=== PATIENT | female | born 1970 | race Caucasian/White ===

== ENCOUNTER 2016-12-20 08:00 | Outpatient (CLI) | payer MEDICARE, MEDICAID | END 2016-12-20 23:59 | DX: N30.01 Acute cystitis with hematuria (principal) ==

== ENCOUNTER 2018-05-15 09:12 | Outpatient (CLI) | payer MEDICARE, MEDICAID ==
[2018-05-15 09:47] LABS: BASOPHILS % (AUTO) 0.3 %; EOSINOPHILS % (AUTO) 0.1 %; HGB - HEMOGLOBIN 14.1 g/dL (12.0-16.0); LYMPHOCYTES # (AUTO) 1.7 10^3/uL (1.5-3.5); LYMPHOCYTES % (AUTO) 34.7 %; MEAN CORPUSCULAR HEMOGLOBIN 31.7 pg (27.0-31.0); MEAN CORPUSCULAR HGB CONC 33.1 g/dL (32.0-36.0); MEAN CORPUSCULAR VOLUME 95.5 fL (81.0-99.0); MEAN PLATELET VOLUME 8.5 fL (7.9-10.8); MONOCYTES # (AUTO) 0.3 10^3/uL (0.0-1.0); MONOCYTES % (AUTO) 5.5 %; NEUTROPHILS % (AUTO) 59.4 %; PLT - PLATELET COUNT 212 10^3/uL (130-450); RED BLOOD COUNT 4.46 10^6/uL (4.20-5.40); RED CELL DISTRIBUTION WIDTH 13.5 % (12.0-15.0)
[2018-05-15 10:04] LABS: ALBUMIN/GLOBULIN RATIO 1.3 (1.0-2.2); ALKALINE PHOSPHATASE 57 IU/L (42-121); ALT ALANINE AMINOTRANSFERASE 24 IU/L (10-60); AST ASPARTATE AMINOTRANSFERASE 23 IU/L (10-42); BILIRUBIN,TOTAL 0.6 mg/dL (0.2-1.0); BUN - BLOOD UREA NITROGEN 12 mg/dL (6-20); CALCIUM 9.2 mg/dL (8.5-10.3); CARBON DIOXIDE - CO2 22 mmol/L (21-32); CHLORIDE 105 mmol/L (101-111); CHOLESTEROL 214 mg/dL; CREATININE 0.9 mg/dL (0.4-1.0); GFR - MDRD 67 (>89); GLUCOSE 90 mg/dL (70-100); HDL CHOLESTEROL 53 mg/dL; LDL CHOLESTEROL,CALCULATED 134 mg/dL; LDL/HDL RATIO 2.5 (<4.4); SODIUM 139 mmol/L (135-145); TOTAL PROTEIN 7.1 g/dL (6.7-8.2); VLDL CHOLESTEROL 27 mg/dL
[2018-05-15 10:05] LABS: HB2 TOTAL 15.6 g/dL; HEMOGLOBIN A1C 0.48 g/dL
[2018-05-15 10:30] LABS: THYROID STIMULATING HORMONE 3.38 uIU/mL (0.34-5.60)
[2018-05-15 10:32] LABS: FREE T4 (FREE THYROXINE) 0.67 ng/dL (0.58-1.64)
== END 2018-05-15 09:13 | disposition home or self-care (01) ==
LOC: LAB 09:12
PROVIDERS: ATTEND Internal Medicine
DX: Z00.00 Encounter for general adult medical examination without abnormal findings (principal); E78.5 Hyperlipidemia, unspecified; L40.9 Psoriasis, unspecified; R73.01 Impaired fasting glucose; Z79.899 Other long term (current) drug therapy; Z13.6 Encounter for screening for cardiovascular disorders; Z87.820 Personal history of traumatic brain injury
CPT/HCPCS: 36415; 80053; 80061; 83036; 83721; 84439; 84443; 85025

== ENCOUNTER 2018-07-10 13:12 | Outpatient (CLI) | payer MEDICARE, MEDICAID ==
[2018-07-10 13:53] LABS: VALPROIC ACID (DEPAKOTE) 41.3 ug/mL
== END 2018-07-10 13:13 | disposition home or self-care (01) ==
LOC: LAB 13:12
PROVIDERS: ATTEND Nurse Practitioner Psychiatric/Mental Health
DX: F31.9 Bipolar disorder, unspecified (principal)
CPT/HCPCS: 36415; 80164

== ENCOUNTER 2018-09-13 10:03 | Outpatient (CLI) | payer MEDICARE, MEDICAID ==
[2018-09-13 11:23] LABS: VALPROIC ACID (DEPAKOTE) 77.4 ug/mL
== END 2018-09-13 10:04 | disposition home or self-care (01) ==
LOC: LAB 10:03
PROVIDERS: ATTEND Nurse Practitioner Psychiatric/Mental Health
DX: F31.9 Bipolar disorder, unspecified (principal)
CPT/HCPCS: 36415; 80164

== ENCOUNTER 2018-11-21 10:25 | Outpatient (CLI) | payer MEDICARE, MEDICAID ==
[2018-11-21 11:08] LABS: VALPROIC ACID (DEPAKOTE) 91.7 ug/mL
== END 2018-11-21 10:26 | disposition home or self-care (01) ==
LOC: LAB 10:25
PROVIDERS: ATTEND Internal Medicine
DX: N95.1 Menopausal and female climacteric states (principal)
CPT/HCPCS: 36415; 80164; 83001

== ENCOUNTER 2019-05-22 09:30 | Outpatient (CLI) | payer MEDICARE, MEDICAID ==
[2019-05-22 10:29] LABS: ALBUMIN 4.2 g/dL (3.2-5.5); ALBUMIN/GLOBULIN RATIO 1.4 (1.0-2.2); ALKALINE PHOSPHATASE 64 IU/L (42-121); ALT ALANINE AMINOTRANSFERASE 41 IU/L (10-60); AST ASPARTATE AMINOTRANSFERASE 35 IU/L (10-42); BILIRUBIN,TOTAL 0.5 mg/dL (0.2-1.0); BUN - BLOOD UREA NITROGEN 12 mg/dL (6-20); CALCIUM 9.5 mg/dL (8.5-10.3); CARBON DIOXIDE - CO2 22 mmol/L (21-32); CHLORIDE 104 mmol/L (101-111); CHOL/HDL RATIO 5.2 (<4.4); CHOLESTEROL 287 mg/dL; CREATININE 0.8 mg/dL (0.4-1.0); GFR - MDRD 77 (>89); GLUCOSE 97 mg/dL (70-100); HDL CHOLESTEROL 55 mg/dL; LDL CHOLESTEROL,CALCULATED 189 mg/dL; LDL/HDL RATIO 3.4 (<4.4); SODIUM 140 mmol/L (135-145); TOTAL PROTEIN 7.1 g/dL (6.7-8.2); VALPROIC ACID (DEPAKOTE) 89.1 ug/mL; VLDL CHOLESTEROL 43 mg/dL
[2019-05-22 10:37] LABS: HEMOGLOBIN A1C 0.53 g/dL; HEMOGLOBIN A1C % 5.4 % (4.6-6.2)
[2019-05-22 11:24] LABS: THYROID STIMULATING HORMONE 5.98 uIU/mL (0.34-5.60)
[2019-05-22 11:26] LABS: FREE T4 (FREE THYROXINE) 0.59 ng/dL (0.58-1.64)
[2019-05-22 11:52] LABS: FOLLICLE STIMULATING HORMONE 12.49 mIU/mL
[2019-05-23 09:24] LABS: BASOPHILS % (AUTO) 0.4 %; EOSINOPHILS % (AUTO) 0.4 %; HGB - HEMOGLOBIN 14.2 g/dL (12.0-16.0); LYMPHOCYTES # (AUTO) 1.4 10^3/uL (1.5-3.5); LYMPHOCYTES % (AUTO) 25.2 %; MEAN CORPUSCULAR HEMOGLOBIN 32.6 pg (27.0-31.0); MEAN CORPUSCULAR HGB CONC 32.8 g/dL (32.0-36.0); MEAN CORPUSCULAR VOLUME 99.5 fL (81.0-99.0); MEAN PLATELET VOLUME 10.8 fL (7.9-10.8); MONOCYTES # (AUTO) 0.4 10^3/uL (0.0-1.0); NEUTROPHILS # (AUTO) 3.5 10^3/uL (1.5-6.6); NEUTROPHILS % (AUTO) 65.4 %; PLT - PLATELET COUNT 245 10^3/uL (130-450); RED BLOOD COUNT 4.35 10^6/uL (4.20-5.40); RED CELL DISTRIBUTION WIDTH 12.8 % (12.0-15.0); WHITE BLOOD COUNT 5.4 x10^3/uL (4.8-10.8)
== END 2019-05-22 09:31 | disposition home or self-care (01) ==
LOC: LAB 09:30
PROVIDERS: ATTEND Internal Medicine
DX: E78.5 Hyperlipidemia, unspecified (principal); R73.01 Impaired fasting glucose; R35.0 Frequency of micturition; N91.2 Amenorrhea, unspecified; E02 Subclinical iodine-deficiency hypothyroidism; Z79.899 Other long term (current) drug therapy
CPT/HCPCS: 36415; 80053; 80061; 80164; 83001; 83036; 83721; 84439; 84443; 85025

== ENCOUNTER 2019-07-11 10:52 | Outpatient (CLI) | payer MEDICARE, MEDICAID ==
--- NOTE | 2019-07-11 14:55 | Mammography Report ---
Reason: ANNUAL SCREENING Procedure Date: 07/11/2019 Accession Number: [id number] / [id number] Procedure: ROMEO - Screening Mammo Dig Bilat CPT Code: FULL RESULT: EXAM: Screening Mammo Dig Bilat DATE: 07/11/2019 12:03 PM CLINICAL HISTORY: Routine screening TECHNIQUE: (B) - Bilateral CC and MLO views were obtained. COMPARISON: 04/15/2016, 04/27/2011 PARENCHYMAL PATTERN: (A) - The breasts demonstrate scattered fibroglandular densities bilaterally. FINDINGS: On the left no significant interval change. There are no suspicious masses, calcifications, or areas of distortion. On the right increasing calcifications upper outer quadrant possibly benign. Suggest additional magnification views. No suspicious masses or architectural distortion. IMPRESSION: Incomplete examination. BI-RADS category 0. Needs additional evaluation right breast by magnification views. Negative left breast. RECOMMENDATION: (ADDMAM) - Recommend additional mammographic views. Right breast BI-RADS CATEGORY: [0 needs additional evaluation] STANDARD QUALIFYING STATEMENTS: 1. This examination was not reviewed with the aid of Computer-Aided Detection (CAD). 2. A negative or benign imaging report should not preclude biopsy if clinically suspicious findings are present. 3. Dense breasts may obscure an underlying neoplasm. 4. This examination was reviewed without the aid of 3D breast imaging (tomosynthesis).
== END 2019-07-11 10:53 | disposition home or self-care (01) ==
LOC: DI 10:52
PROVIDERS: ATTEND Internal Medicine
DX: Z12.31 Encounter for screening mammogram for malignant neoplasm of breast (principal); R92.1 Mammographic calcification found on diagnostic imaging of breast
CPT/HCPCS: 77067

== ENCOUNTER 2019-07-31 09:41 | Outpatient (CLI) | payer MEDICARE, MEDICAID ==
--- NOTE | 2019-07-31 11:55 | Mammography Report ---
Reason: ABN MAMMO - RT SPEC VIEWS Procedure Date: 07/31/2019 Accession Number: [id number] / [id number] Procedure: ROMEO - Diag Special Views Dig RT CPT Code: FULL RESULT: EXAM: Diag Special Views Dig RT DATE: 07/31/2019 10:09 AM CLINICAL HISTORY: Diagnostic examination. The patient is recalled from screening for increasing right breast calcifications. TECHNIQUE: (R) - Right right magnified CC, right ML and right magnified ML images are obtained. COMPARISON: 07/11/2019 through 04/27/2011. PARENCHYMAL PATTERN: (A) - The breast(s) demonstrate(s) scattered fibroglandular densities. FINDINGS: Magnification views confirm interval increase in calcifications which are scattered and predominantly coarse. No pleomorphic clustered calcifications or suspicious groupings are identified. There are no suspicious masses, calcifications, or areas of distortion. IMPRESSION: Benign findings. BI-RADS category 2. RECOMMENDATION: (ANNUAL) - Recommend routine annual screening mammography. BI-RADS CATEGORY: (2) - Benign Findings. STANDARD QUALIFYING STATEMENTS: 1. This examination was not reviewed with the aid of Computer-Aided Detection (CAD). 2. A negative or benign imaging report should not preclude biopsy if clinically suspicious findings are present. 3. Dense breasts may obscure an underlying neoplasm. 4. This examination was reviewed with the aid of 3D breast imaging (tomosynthesis).
== END 2019-07-31 09:42 | disposition home or self-care (01) ==
LOC: DI 09:41
PROVIDERS: ATTEND Internal Medicine
DX: R92.8 Other abnormal and inconclusive findings on diagnostic imaging of breast (principal)

== ENCOUNTER 2020-04-16 12:35 | Outpatient (CLI) | payer MEDICARE ==
[2020-04-16 13:25] LABS: CALCIUM 9.3 mg/dL (8.5-10.3); CREATININE 1.1 mg/dL (0.4-1.0)
[2020-04-16 13:47] LABS: HB2 TOTAL 15.5 g/dL; HEMOGLOBIN A1C 0.52 g/dL; HEMOGLOBIN A1C % 5.2 % (4.6-6.2)
== END 2020-04-16 12:36 | disposition home or self-care (01) ==
LOC: LAB 12:35
PROVIDERS: ATTEND Internal Medicine
DX: F63.89 Other impulse disorders (principal); R41.82 Altered mental status, unspecified; Z79.899 Other long term (current) drug therapy
CPT/HCPCS: 36415; 80048; 81599; 83036; 86255

== ENCOUNTER 2020-04-24 13:36 | Outpatient (CLI) | payer MEDICARE ==
[2020-04-24 14:27] LABS: BASOPHILS % (AUTO) 0.5 %; EOSINOPHILS # (AUTO) 0.1 10^3/uL (0.0-0.7); EOSINOPHILS % (AUTO) 0.9 %; HGB - HEMOGLOBIN 14.3 g/dL (12.0-16.0); LYMPHOCYTES # (AUTO) 2.1 10^3/uL (1.5-3.5); LYMPHOCYTES % (AUTO) 35.9 %; MEAN CORPUSCULAR HEMOGLOBIN 32.8 pg (27.0-31.0); MEAN CORPUSCULAR HGB CONC 33.4 g/dL (32.0-36.0); MEAN CORPUSCULAR VOLUME 98.2 fL (81.0-99.0); MEAN PLATELET VOLUME 10.7 fL (7.9-10.8); MONOCYTES # (AUTO) 0.4 10^3/uL (0.0-1.0); MONOCYTES % (AUTO) 6.3 %; NEUTROPHILS # (AUTO) 3.3 10^3/uL (1.5-6.6); NEUTROPHILS % (AUTO) 55.9 %; PLT - PLATELET COUNT 186 10^3/uL (130-450); RED BLOOD COUNT 4.36 10^6/uL (4.20-5.40); RED CELL DISTRIBUTION WIDTH 12.8 % (12.0-15.0); WHITE BLOOD COUNT 5.9 x10^3/uL (4.8-10.8)
[2020-04-24 14:43] LABS: VALPROIC ACID (DEPAKOTE) 77.6 ug/mL
[2020-04-24 14:57] LABS: THYROID STIMULATING HORMONE 3.4 uIU/mL (0.34-5.60)
== END 2020-04-24 13:37 | disposition home or self-care (01) ==
LOC: LAB 13:36
PROVIDERS: ATTEND Nurse Practitioner
DX: Z79.899 Other long term (current) drug therapy (principal)
CPT/HCPCS: 36415; 80164; 82607; 84443; 85025

== ENCOUNTER 2020-05-07 11:49 | Outpatient (CLI) | payer MEDICARE | END 2020-05-07 11:50 | disposition home or self-care (01) | LOC: LAB 11:49 | PROVIDERS: ATTEND Internal Medicine | DX: Z79.899 Other long term (current) drug therapy (principal) | CPT/HCPCS: 36415; 83001 ==

== ENCOUNTER 2020-06-04 09:04 | Outpatient (CLI) | payer MEDICARE, MEDICAID ==
[2020-06-04 09:32] LABS: BASOPHILS % (AUTO) 0.5 %; EOSINOPHILS # (AUTO) 0.1 10^3/uL (0.0-0.7); EOSINOPHILS % (AUTO) 1.1 %; HGB - HEMOGLOBIN 14.3 g/dL (12.0-16.0); LYMPHOCYTES # (AUTO) 1.9 10^3/uL (1.5-3.5); LYMPHOCYTES % (AUTO) 33.5 %; MEAN CORPUSCULAR HEMOGLOBIN 33.1 pg (27.0-31.0); MEAN CORPUSCULAR VOLUME 97.5 fL (81.0-99.0); MEAN PLATELET VOLUME 10.3 fL (7.9-10.8); MONOCYTES # (AUTO) 0.3 10^3/uL (0.0-1.0); MONOCYTES % (AUTO) 5.4 %; NEUTROPHILS # (AUTO) 3.3 10^3/uL (1.5-6.6); NEUTROPHILS % (AUTO) 59.3 %; PLT - PLATELET COUNT 227 10^3/uL (130-450); RED BLOOD COUNT 4.32 10^6/uL (4.20-5.40); RED CELL DISTRIBUTION WIDTH 13.1 % (12.0-15.0); WHITE BLOOD COUNT 5.5 x10^3/uL (4.8-10.8)
[2020-06-04 09:52] LABS: ALBUMIN 4.3 g/dL (3.2-5.5); ALBUMIN/GLOBULIN RATIO 1.4 (1.0-2.2); ALKALINE PHOSPHATASE 51 IU/L (42-121); ALT ALANINE AMINOTRANSFERASE 16 IU/L (10-60); AST ASPARTATE AMINOTRANSFERASE 15 IU/L (10-42); BILIRUBIN,TOTAL 0.9 mg/dL (0.2-1.0); BUN - BLOOD UREA NITROGEN 18 mg/dL (6-20); CALCIUM 9.3 mg/dL (8.5-10.3); CARBON DIOXIDE - CO2 21 mmol/L (21-32); CHLORIDE 109 mmol/L (101-111); CHOL/HDL RATIO 4.3 (<4.4); CHOLESTEROL 270 mg/dL; GLUCOSE 99 mg/dL (70-100); HDL CHOLESTEROL 63 mg/dL; LDL CHOLESTEROL,CALCULATED 169 mg/dL; LDL/HDL RATIO 2.7 (<4.4); SODIUM 138 mmol/L (135-145); TOTAL PROTEIN 7.3 g/dL (6.7-8.2); VLDL CHOLESTEROL 38 mg/dL
[2020-06-04 09:53] LABS: VALPROIC ACID (DEPAKOTE) < 10.0 ug/mL
[2020-06-04 10:04] LABS: THYROID STIMULATING HORMONE 3.71 uIU/mL (0.34-5.60)
[2020-06-04 10:06] LABS: FREE T4 (FREE THYROXINE) 0.47 ng/dL (0.58-1.64)
[2020-06-04 10:11] LABS: HB2 TOTAL 15.4 g/dL; HEMOGLOBIN A1C 0.5 g/dL; HEMOGLOBIN A1C % 5.1 % (4.6-6.2)
== END 2020-06-04 09:05 | disposition home or self-care (01) ==
LOC: LAB 09:04
PROVIDERS: ATTEND Internal Medicine
DX: E78.5 Hyperlipidemia, unspecified (principal); R73.01 Impaired fasting glucose; Z13.6 Encounter for screening for cardiovascular disorders; Z79.899 Other long term (current) drug therapy; Z87.820 Personal history of traumatic brain injury; F31.9 Bipolar disorder, unspecified; E02 Subclinical iodine-deficiency hypothyroidism
CPT/HCPCS: 36415; 80053; 80061; 80164; 83036; 83721; 84439; 84443; 85025

== ENCOUNTER 2020-08-27 13:11 | Outpatient (CLI) | payer MEDICARE, MEDICAID ==
--- NOTE | 2020-08-28 15:26 | Mammography Report ---
BILATERAL DIGITAL SCREENING MAMMOGRAM: 08/27/2020 CLINICAL: Routine screening. Comparison is made to exams dated: 07/31/2019 mammogram, 07/11/2019 mammogram, and 04/15/2016 mammogram - [facility]. There are scattered fibroglandular elements in both breasts. No significant masses, calcifications, or other findings are seen in either breast. There has been no significant interval change. IMPRESSION: NEGATIVE There is no mammographic evidence of malignancy. A 1 year screening mammogram is recommended. This exam was interpreted at Station ID: [id number]. NOTE: For mammograms, a report in lay terms will be sent to the patient. Approximately 15% of breast malignancies will not be visualized mammographically. In the management of a palpable breast mass, a negative mammogram must not discourage biopsy of a clinically suspicious lesion. Electronically Signed By: Gagan meza/[email or web address]:08/27/2020 17:00:28 ACR BI-RADS Category 1: Negative 3341F PARENCHYMAL PATTERN: (A) - The breast(s) demonstrate(s) scattered fibroglandular densities. BI-RADS CATEGORY: (1) - 1 RECOMMENDATION: (ANNUAL) - Recommend routine annual screening mammography. [id number] 1 year screening LATERALITY: (B)
== END 2020-08-27 13:12 | disposition home or self-care (01) ==
LOC: DI.N 13:11
PROVIDERS: ATTEND Internal Medicine
DX: Z12.31 Encounter for screening mammogram for malignant neoplasm of breast (principal)
CPT/HCPCS: 77067

== ENCOUNTER 2021-03-12 19:55 | Outpatient (CLI) | payer MEDICARE, MEDICAID | END 2021-03-12 19:56 | disposition critical access hospital (66) | LOC: EMS 19:55 | DX: R53.1 Weakness (principal); R41.82 Altered mental status, unspecified | CPT/HCPCS: A0425; A0429 ==

== ENCOUNTER 2021-03-12 20:07 | Emergency (ER) | payer MEDICARE, MEDICAID ==
--- NOTE | 2021-03-12 20:33 | ED Physician Documentation ---
History of Present Illness - Stated complaint Stated Complaint: BP CONCERN - Chief complaint Chief Complaint: Neuro - History obtained from History obtained from: Patient, EMS - History of Present Illness Timing: How many days ago (3) - Additonal information Additional information: 50-year-old female who has a bipolar disorder and is s/p head injury 30 years ag o, lives in an adult care facility and this is her first emergency department visit to our facility. She is complaining of a decreased appetite over the past 3 days and generalized weakness and lightheadedness. She had 2 bowel movements today she had was up to urinate multiple times. Review of Systems Constitutional: reports: Fatigue. denies: Fever Eyes: denies: Decreased vision Ears: denies: Loss of hearing, Ear pain Nose: denies: Congestion Throat: denies: Sore throat Cardiac: denies: Chest pain / pressure, Palpitations Respiratory: denies: Dyspnea, Cough GI: reports: Abdominal Pain, Nausea. denies: Vomiting, Constipation, Diarrhea : reports: Frequency. denies: Dysuria Skin: denies: Rash Musculoskeletal: denies: Neck pain, Back pain, Extremity pain Neurologic: reports: Generalized weakness. denies: Focal weakness, Numbness PD PAST MEDICAL HISTORY - Present Medications Home Medications: Ambulatory Orders Medication Instructions Recorded Confirmed Acetaminophen [Acetaminophen Extra 500 mg PO QID PRN 03/12/21 03/12/21 Strength] Ascorbic Acid [Vitamin C] 500 mg PO DAILY 03/12/21 03/12/21 Cholecalciferol [Vitamin D3] 1 tab PO DAILY 03/12/21 03/12/21 Docusate Sodium [Dok] 250 mg PO DAILY 03/12/21 03/12/21 Escitalopram Oxalate [Lexapro] 40 mg PO DAILY 03/12/21 03/12/21 Estrogen,Con/M-Progest Acet 1 tab PO DAILY 03/12/21 03/12/21 [Prempro 0.625-2.5 mg Tablet] Multivitamin W/Minerals [Theragran 1 tab PO DAILY 03/12/21 03/12/21 M] Olanzapine [Zyprexa] 15 mg PO DAILY 03/12/21 03/12/21 Propranolol [Inderal] 10 mg PO BID 03/12/21 03/12/21 Propranolol [Inderal] 20 mg PO DAILY 03/12/21 03/12/21 Quetiapine Fumarate [Seroquel] 400 mg PO BID 03/12/21 03/12/21 Risperidone [Risperdal] 1.5 mg PO DAILY 03/12/21 03/12/21 Senna [Senokot] 8.6 mg PO DAILY 03/12/21 03/12/21 Zinc Amino Acid Chelate [Zinc 50 mg PO DAILY 03/12/21 03/12/21 Chelated] acetaZOLAMIDE [Diamox] 250 mg PO DAILY 03/12/21 03/12/21 clonazePAM [KlonoPIN] 0.5 mg PO BID 03/12/21 03/12/21 risperiDONE [Risperdal] 2.5 mg PO HS 03/12/21 03/12/21 - Allergies Allergies/Adverse Reactions: Allergies Allergy/AdvReac Type Severity Reaction Status Date / Time amoxicillin Allergy Rash Verified 03/12/21 20:20 PD ED PE NORMAL - Vitals Vital signs reviewed: Yes (hypertensive ) - General General: Alert and oriented X 3, No acute distress, Well developed/nourished, Other (The patient is able to answer questions appropriately but does have some delay in execution of motor commands.) - HEENT HEENT: Atraumatic, PERRL, EOMI - Neck Neck: Supple, no meningeal sign, No bony TTP - Cardiac Cardiac: RRR, No murmur - Respiratory Respiratory: No respiratory distress, Clear bilaterally - Abdomen Abdomen: Normal bowel sounds, Soft, Non tender, Non distended, No organomegaly - Back Back: No CVA TTP, No spinal TTP - Derm Derm: Normal color, Warm and dry, No rash - Extremities Extremities: No deformity, No edema - Neuro Neuro: Alert and oriented X 3, 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, No motor deficit, No sensory deficit, Normal speech Eye Opening: Spontaneous Motor: Obeys Commands Verbal: Oriented GCS Score: 15 - Psych Psych: Normal mood, Normal affect Results - Vitals Vitals: Vital Signs - 24 hr 03/12/21 03/12/21 03/13/21 20:15 22:20 00:00 Temperature 37.2 C 37.4 C 37.3 C Heart Rate 95 78 88 Respiratory 20 16 16 Rate Blood Pressure 148/97 H 122/85 H 124/84 H O2 Saturation 98 100 100 03/13/21 00:04 Temperature 36.5 C Heart Rate 89 Respiratory 16 Rate Blood Pressure 124/84 H O2 Saturation 100 Oxygen O2 Source Room air - EKG (time done) 2014 Rate: Rate (enter#) (96) Rhythm: NSR Ischemia: Normal ST segments Compare to prior EKG: Old EKG unavailable Computer interpretation: Agree with computer - Labs Labs: Laboratory Tests 03/12/21 03/12/21 03/12/21 21:08 21:08 21:08 WBC 6.9 RBC 4.79 Hgb 14.7 Hct 44.0 MCV 91.9 MCH 30.7 MCHC 33.4 RDW 12.4 Plt Count 286 MPV 10.3 Neut # (Auto) 4.5 Lymph # (Auto) 1.8 [place] # (Auto) 0.5 Eos # (Auto) 0.0 Baso # (Auto) 0.0 Absolute Nucleated RBC 0.00 Nucleated RBC % 0.0 Sodium 141 Potassium 3.9 Chloride 105 Carbon Dioxide 23 Anion Gap 13.0 BUN 13 Creatinine 0.8 Estimated GFR (MDRD) 76 L Glucose 122 H Lactic Acid 2.1 Calcium 9.5 Total Bilirubin 0.5 AST 34 ALT 39 Alkaline Phosphatase 64 Total Protein 7.5 Albumin 4.3 Globulin 3.2 Albumin/Globulin Ratio 1.3 Lipase 34 Urine Color Urine Clarity Urine pH Ur Specific [place] Urine Protein Urine Glucose (UA) Urine Ketones Urine Occult Blood Urine Nitrite Urine Bilirubin Urine Urobilinogen Ur Leukocyte Esterase Ur Microscopic Review Urine Culture Comments Urine HCG, Qual 03/13/21 00:15 WBC RBC Hgb Hct MCV MCH MCHC RDW Plt Count MPV Neut # (Auto) Lymph # (Auto) [place] # (Auto) Eos # (Auto) Baso # (Auto) Absolute Nucleated RBC Nucleated RBC % Sodium Potassium Chloride Carbon Dioxide Anion Gap BUN Creatinine Estimated GFR (MDRD) Glucose Lactic Acid Calcium Total Bilirubin AST ALT Alkaline Phosphatase Total Protein Albumin Globulin Albumin/Globulin Ratio Lipase Urine Color YELLOW Urine Clarity CLEAR Urine pH 6.0 Ur Specific [place] 1.010 Urine Protein NEGATIVE Urine Glucose (UA) NEGATIVE Urine Ketones NEGATIVE Urine Occult Blood NEGATIVE Urine Nitrite NEGATIVE Urine Bilirubin NEGATIVE Urine Urobilinogen 0.2 (NORMAL) Ur Leukocyte Esterase NEGATIVE Ur Microscopic Review NOT INDICATED Urine Culture Comments NOT INDICATED Urine HCG, Qual NEGATIVE Procedures - IVC sono (time) 2049 Bedside IVC sono: IVC measures (cm) (1.29), IVC collapsed c insp (cm) (complete), Dehydration (est 1 liter deficit) PD MEDICAL DECISION MAKING - ED course Complexity details: reviewed results, re-evaluated patient, considered differential, d/w patient ED course: 50-year-old female with a history of bipolar disorder and traumatic brain injury presents today with symptoms of dizziness and weakness and she is found to be mildly dehydrated. She is administered a liter of saline. She feels improved. Departure - Departure Disposition: 01 Home, Self Care Clinical Impression: Dehydration Condition: Stable Instructions: ED Dehydration Follow-Up: Claire Gill MD [Primary Care Provider] -
[2021-03-12] MEDS ORDERED: SODIUM CHLORIDE 0.9% 1,000 ML IV STA ×2 (20:55→23:05)
[2021-03-12 21:20] LABS: BASOPHILS % (AUTO) 0.3 %; EOSINOPHILS % (AUTO) 0.4 %; HGB - HEMOGLOBIN 14.7 g/dL (12.0-16.0); LYMPHOCYTES # (AUTO) 1.8 10^3/uL (1.5-3.5); LYMPHOCYTES % (AUTO) 25.7 %; MEAN CORPUSCULAR HEMOGLOBIN 30.7 pg (27.0-31.0); MEAN CORPUSCULAR HGB CONC 33.4 g/dL (32.0-36.0); MEAN CORPUSCULAR VOLUME 91.9 fL (81.0-99.0); MEAN PLATELET VOLUME 10.3 fL (7.9-10.8); MONOCYTES # (AUTO) 0.5 10^3/uL (0.0-1.0); MONOCYTES % (AUTO) 7.4 %; NEUTROPHILS # (AUTO) 4.5 10^3/uL (1.5-6.6); NEUTROPHILS % (AUTO) 65.9 %; PLT - PLATELET COUNT 286 10^3/uL (130-450); RED BLOOD COUNT 4.79 10^6/uL (4.20-5.40); RED CELL DISTRIBUTION WIDTH 12.4 % (12.0-15.0); WHITE BLOOD COUNT 6.9 x10^3/uL (4.8-10.8)
[2021-03-12 21:31] LABS: ALBUMIN 4.3 g/dL (3.2-5.5); ALBUMIN/GLOBULIN RATIO 1.3 (1.0-2.2); BILIRUBIN,TOTAL 0.5 mg/dL (0.2-1.0); CALCIUM 9.5 mg/dL (8.5-10.3); CREATININE 0.8 mg/dL (0.4-1.0); POTASSIUM 3.9 mmol/L (3.5-5.0); TOTAL PROTEIN 7.5 g/dL (6.7-8.2)
--- NOTE | 2021-03-12 21:43 | XRAY Report ---
PROCEDURE: Chest 1 View X-Ray INDICATIONS: chest pain TECHNIQUE: One view of the chest was acquired. COMPARISON: None FINDINGS: Surgical changes and devices: None. Lungs and pleura: No pleural effusions or pneumothorax. Lungs are clear. Mediastinum: Mediastinal contours appear normal. Heart size is normal. Bones and chest wall: No suspicious bony lesions. Overlying soft tissues appear unremarkable. IMPRESSION: No acute process. Reviewed by: Emerson Durbin MD on 03/12/2021 9:42 PM PDT Approved by: Emerson Durbin MD on 03/12/2021 9:42 PM PDT Station ID: [id number]
[2021-03-13 00:19] LABS: BILIRUBIN,URINE NEGATIVE (NEGATIVE); GLUCOSE, URINE (UA) NEGATIVE (NEGATIVE); KETONES,URINE (UA) NEGATIVE (NEGATIVE); LEUKOCYTE ESTERASE, URINE NEGATIVE (NEGATIVE); NITRITE,URINE NEGATIVE (NEGATIVE); OCCULT BLOOD,URINE NEGATIVE (NEGATIVE); PROTEIN,URINE NEGATIVE (NEGATIVE); UROBILINOGEN,URINE 0.2 (NORMAL) E.U./dL (NORMAL)
[2021-03-13 00:22] LABS: CLARITY,URINE CLEAR (CLEAR); HCG UR QUAL NEGATIVE
[2021-03-13 00:48] VITALS: BP 126/89
== END 2021-03-13 01:32 | disposition home or self-care (01) ==
LOC: EDUNIT# → SUPCPDRO 20:07 → ED 20:07
DX: E86.0 Dehydration (principal); F31.9 Bipolar disorder, unspecified; Z87.820 Personal history of traumatic brain injury
CPT/HCPCS: 36415; 80053; 81001; 81003; 81025; 83605; 83690; 85025; 87086; 93005; 96360; 96361; 99284

== ENCOUNTER 2021-08-10 09:05 | Outpatient (CLI) | payer MEDICARE, MEDICAID ==
--- NOTE | 2021-08-10 16:50 | Ultrasound Report ---
PROCEDURE: Abdomen Limited INDICATIONS: ELEVATED LFTS TECHNIQUE: Real-time focused scanning was performed of the abdomen, with image documentation. COMPARISON: None. FINDINGS: Increased hepatic parenchymal echogenicity with coarsened hepatic echotexture. Questionabl e subtle nodularity of the hepatic contour. No focal hepatic mass. No intrahepatic or extrahepatic bi liary ductal dilatation. There is cholelithiasis as well as adenomyomatosis of the gallbladder. No ga ll or wall thickening nor pericholecystic fluid. Pancreas is not well seen but the visualized portion s are normal. IMPRESSION: Increased hepatic parenchymal echogenicity and coarsened hepatic echotexture with questionable subtle Contour nodularity of the liver. Findings are indicative of diffuse hepatocellular disorders such as have hepatic steatosis and potentially steatohepatitis or viral hepatitis. The nodularity suggests a potential component of developing cirrhotic change. Cholelithiasis and adenomyomatosis of the gallbladder without findings of cholecystitis. Reviewed by: Anjum Marti MD on 08/10/2021 4:49 PM PDT Approved by: Anjum Marti MD on 08/10/2021 4:49 PM PDT Station ID: [id number]
== END 2021-08-10 09:06 | disposition home or self-care (01) ==
LOC: DI 09:05
PROVIDERS: ATTEND Internal Medicine
DX: K80.20 Calculus of gallbladder without cholecystitis without obstruction (principal)

== ENCOUNTER 2022-03-14 07:00 | Outpatient (CLI) | payer MEDICARE, MEDICAID ==
[2022-03-14 16:01] LABS: BILIRUBIN,URINE NEGATIVE (NEGATIVE); GLUCOSE, URINE (UA) NEGATIVE (NEGATIVE); KETONES,URINE (UA) NEGATIVE (NEGATIVE); LEUKOCYTE ESTERASE, URINE NEGATIVE (NEGATIVE); NITRITE,URINE NEGATIVE (NEGATIVE); OCCULT BLOOD,URINE NEGATIVE (NEGATIVE); PROTEIN,URINE NEGATIVE (NEGATIVE); UROBILINOGEN,URINE 0.2 (NORMAL) E.U./dL (NORMAL)
[2022-03-14 16:07] LABS: CLARITY,URINE HAZY (CLEAR)
== END 2022-03-14 23:59 | disposition home or self-care (01) ==
LOC: LAB.R 07:00
PROVIDERS: ATTEND Internal Medicine
DX: R39.9 Unspecified symptoms and signs involving the genitourinary system (principal); R35.0 Frequency of micturition
CPT/HCPCS: 81003; 87086

== ENCOUNTER 2022-04-05 14:31 | Outpatient (CLI) | payer MEDICARE, MEDICAID ==
--- NOTE | 2022-04-06 08:58 | Mammography Report ---
BILATERAL DIGITAL SCREENING MAMMOGRAM: 04/05/2022 CLINICAL: Routine screening. Comparison is made to exams dated: 08/27/2020 mammogram, 07/31/2019 mammogram, 07/11/2019 mammogram, 08/2016 mammogram, and 04/27/2011 mammogram - [facility]. There are scattered fibro glandular elements in both breasts. No significant masses, calcifications, or other findings are seen in either breast. There has been no significant interval change. IMPRESSION: NEGATIVE There is no mammographic evidence of malignancy. A 1 year screening mammogram is recommended. This exam was interpreted at Station ID: [id number]. NOTE: For mammograms, a report in lay terms will be sent to the patient. Approximately 15% of breast malignancies will not be visualized mammographically. In the management of a palpable breast mass, a negative mammogram must not discourage biopsy of a clinically suspicious lesion. Electronically Signed By: Anjum Marti M.D., jr/murphy:04/05/2022 15:57:12 ACR BI-RADS Category 1: Negative 3341F PARENCHYMAL PATTERN: (A) - The breast(s) demonstrate(s) scattered fibroglandular densities. BI-RADS CATEGORY: (1) - 1 RECOMMENDATION: (ANNUAL) - Recommend routine annual screening mammography. [id number] 1 year screening LATERALITY: (B)
== END 2022-04-05 14:32 | disposition home or self-care (01) ==
LOC: DI.N 14:31
PROVIDERS: ATTEND Internal Medicine
DX: Z12.31 Encounter for screening mammogram for malignant neoplasm of breast (principal)

== ENCOUNTER 2023-08-26 11:56 | Outpatient (CLI) | payer MEDICARE, MEDICAID | END 2023-08-26 11:57 | disposition critical access hospital (66) | LOC: EMS 11:56 | DX: R07.9 Chest pain, unspecified (principal); R42 Dizziness and giddiness; R00.0 Tachycardia, unspecified; R53.81 Other malaise | CPT/HCPCS: A0425; A0429 ==

== ENCOUNTER 2023-08-26 12:09 | Emergency (ER) | payer MEDICARE, MEDICAID ==
--- NOTE | 2023-08-26 12:16 | ED Physician Documentation ---
History of Present Illness - Stated complaint Stated Complaint: CP/DIZZY - History obtained from History obtained from: Patient - Additonal information Additional information: This is [id number] female who reports a history of bipolar and manic depression who lives in an adult family home due to mental illness. She is a limited historian for this reason but It sounds as though her adult family home activated EMS today After the patient ran away from her [place] [facility] [place] and then started to complain of dizziness and lightheadedness as she sat down in a neighbor's chair. She States she had to crawl on the ground to get back into the house due to the dizziness. She is not sure if she had chest pain or shortness of breath when I speak with her however EMS indicates that the patient at some point was complaining of left-sided chest pain. The patient denies any abdominal pain, no nausea vomiting diarrhea, no urinary symptoms. She denies any change in her medications recently. She denies any known sick contacts. Review of Systems Unable to obtain: Other (.Limited due to patient's mental illness. She frequently states "I do not know." However some review of systems obtained and listed in HPI) PD PAST MEDICAL HISTORY - Past Medical History Past Medical History: Yes Neuro: Other Psych: Bipolar disorder - Past Surgical History Past Surgical History: No - Present Medications Home Medications: Ambulatory Orders Medication Instructions Recorded Confirmed Acetaminophen [Acetaminophen Extra 500 mg PO QID PRN 03/12/21 03/12/21 Strength] Ascorbic Acid [Vitamin C] 500 mg PO DAILY 03/12/21 03/12/21 Cholecalciferol [Vitamin D3] 1 tab PO DAILY 03/12/21 03/12/21 Docusate Sodium [Dok] 250 mg PO DAILY 03/12/21 03/12/21 Escitalopram Oxalate [Lexapro] 40 mg PO DAILY 03/12/21 03/12/21 Estrogen,Con/M-Progest Acet 1 tab PO DAILY 03/12/21 03/12/21 [Prempro 0.625-2.5 mg Tablet] Multivitamin W/Minerals [Theragran 1 tab PO DAILY 03/12/21 03/12/21 M] OLANZapine [Zyprexa] 15 mg PO DAILY 03/12/21 03/12/21 Propranolol [Inderal] 10 mg PO BID 03/12/21 03/12/21 Propranolol [Inderal] 20 mg PO DAILY 03/12/21 03/12/21 Quetiapine Fumarate [Seroquel] 400 mg PO BID 03/12/21 03/12/21 Senna [Senokot] 8.6 mg PO DAILY 03/12/21 03/12/21 Zinc Amino Acid Chelate [Zinc 50 mg PO DAILY 03/12/21 03/12/21 Chelated] acetaZOLAMIDE [Diamox] 250 mg PO DAILY 03/12/21 03/12/21 clonazePAM [KlonoPIN] 0.5 mg PO BID 03/12/21 03/12/21 risperiDONE [Risperdal] 1.5 mg PO DAILY 03/12/21 03/12/21 risperiDONE [Risperdal] 2.5 mg PO HS 03/12/21 03/12/21 - Allergies Allergies/Adverse Reactions: Allergies Allergy/AdvReac Type Severity Reaction Status Date / Time amoxicillin Allergy Rash Verified 08/26/23 12:17 - Social History Does the pt smoke?: No Smoking Status: Never smoker Does the pt drink ETOH?: No Does the pt have substance abuse?: No - Immunizations Immunizations are current?: Yes PD ED PE NORMAL - Vitals Vital signs reviewed: Yes - General General: Alert and oriented X 3, No acute distress, Well developed/nourished - HEENT HEENT: Atraumatic, PERRL, EOMI, Ears normal, Moist mucous membranes, Pharynx benign - Neck Neck: Supple, no meningeal sign, No JVD - Cardiac Cardiac: RRR, No murmur, No gallop, No rub, Strong equal pulses - Respiratory Respiratory: No respiratory distress, Clear bilaterally - Abdomen Abdomen: Normal bowel sounds, Soft, Non tender, Non distended, No organomegaly - Derm Derm: Normal color, Warm and dry, No rash - Extremities Extremities: No deformity, No tenderness to palpate, Normal ROM s pain, No edema, No calf tenderness / cord - Neuro Neuro: Alert and oriented X 3, Normal speech Eye Opening: Spontaneous Motor: Obeys Commands Verbal: Oriented GCS Score: 15 Results - Vitals Vitals: Vital Signs - 24 hr 08/26/23 08/26/23 08/26/23 12:17 12:23 14:23 Temperature 36.5 C 36.5 C Heart Rate 96 96 90 Respiratory 20 20 18 Rate Blood Pressure 140/93 H 140/93 H 140/90 H O2 Saturation 100 100 100 Oxygen O2 Source Room air - EKG (time done) No standard instances EKG releavant findings:: EKG personally interpreted by author of this note. Relevant findings are: Rate: Rate (enter#) (93) Rhythm: NSR Hallie: Normal Intervals: Normal GA QRS: Normal Ischemia: Normal ST segments Computer interpretation: Agree with computer - Labs Labs: Laboratory Tests 08/26/23 08/26/23 08/26/23 12:25 12:25 12:28 WBC 7.4 RBC 4.73 Hgb 14.2 Hct 44.9 MCV 94.9 MCH 30.0 MCHC 31.6 L RDW 12.7 Plt Count 300 MPV 9.9 Neut # (Auto) 5.8 Lymph # (Auto) 1.2 L [place] # (Auto) 0.3 Eos # (Auto) 0.0 Baso # (Auto) 0.0 Absolute Nucleated RBC 0.00 Nucleated RBC % 0.0 Sodium 138 Potassium 3.8 Chloride 108 Carbon Dioxide 19 L Anion Gap 11.0 BUN 15 Creatinine 0.8 Estimated GFR (MDRD) 75 L Glucose 119 H Calcium 9.3 Total Bilirubin 0.3 AST 17 ALT 20 Alkaline Phosphatase 71 Troponin I High Sens 8.1 Total Protein 6.8 Albumin 4.2 Globulin 2.6 Albumin/Globulin Ratio 1.6 Lipase 26 Urine Color Urine Clarity Urine pH Ur Specific [place] Urine Protein Urine Glucose (UA) Urine Ketones Urine Occult Blood Urine Nitrite Urine Bilirubin Urine Urobilinogen Ur Leukocyte Esterase Ur Microscopic Review Urine Culture Comments 08/26/23 14:00 WBC RBC Hgb Hct MCV MCH MCHC RDW Plt Count MPV Neut # (Auto) Lymph # (Auto) [place] # (Auto) Eos # (Auto) Baso # (Auto) Absolute Nucleated RBC Nucleated RBC % Sodium Potassium Chloride Carbon Dioxide Anion Gap BUN Creatinine Estimated GFR (MDRD) Glucose Calcium Total Bilirubin AST ALT Alkaline Phosphatase Troponin I High Sens Total Protein Albumin Globulin Albumin/Globulin Ratio Lipase Urine Color YELLOW Urine Clarity CLEAR Urine pH 7.0 Ur Specific [place] 1.010 Urine Protein NEGATIVE Urine Glucose (UA) NEGATIVE Urine Ketones NEGATIVE Urine Occult Blood NEGATIVE Urine Nitrite NEGATIVE Urine Bilirubin NEGATIVE Urine Urobilinogen 0.2 (NORMAL) Ur Leukocyte Esterase NEGATIVE Ur Microscopic Review NOT INDICATED Urine Culture Comments NOT INDICATED - Rads (name of study) No standard instances Relevant Findings:: Final report received PD Medical Decision Making - ED course Complexity details: reviewed results, re-evaluated patient, considered differential, d/w patient ED course: 52-year-old female with past medical history as listed above who presented after running away from her adult family home and then feeling lightheaded or dizzy. The patient apparently also at some point complained of chest pain though she denied upon arrival here. Patient is a poor historian however secondary to her mental illness. On arrival here, patient is well-appearing, her physical exam is unremarkable, her vital signs are stable. We obtained an EKG which shows no acute ischemic changes, labs are reassuring as listed above, high-sensitivity troponin is negative, urinalysis negative for signs of infection CBC and CMP are stable. Chest x-ray is negative. I do think therefore that the patient is stable for discharge back to her facility, the cause of her symptoms earlier is not clear though dizziness is nonspecific and may be related to mild viral illness, dehydration, stress from running away from her adult family home, secondary to her mental health medications. She was encouraged to rest today, stable hydrated and eat on a regular basis, and stay at her adult family home. She was advised of return precautions. Departure - Departure Disposition: Home, Self Care Clinical Impression: Atypical chest pain, Dizziness Condition: Good Instructions: ED Chest Pain Atypical Unkn Cause, ED Dizziness UKO Comments: Bonilla, your workup today in the ER is stable. Your labs, including heart labs, electrolytes, and blood count, are normal. You do not have signs of urine infection and your chest xray is normal. Dizziness can be caused for many reasons sometimes mild dehydration, sometimes a viral illness, sometimes medication induced. I would recommend that you rest today, stay well-hydrated and eat on a regular basis. Follow-up with your primary doctor if you have ongoing symptoms next week or return to the ER if worsening. Forms: PCP List
[2023-08-26 12:30] LABS: BASOPHILS % (AUTO) 0.4 %; HCT - HEMATOCRIT 44.9 % (37.0-47.0); HGB - HEMOGLOBIN 14.2 g/dL (12.0-16.0); LYMPHOCYTES # (AUTO) 1.2 10^3/uL (1.5-3.5); LYMPHOCYTES % (AUTO) 16.2 %; MEAN CORPUSCULAR HGB CONC 31.6 g/dL (32.0-36.0); MEAN CORPUSCULAR VOLUME 94.9 fL (81.0-99.0); MEAN PLATELET VOLUME 9.9 fL (7.9-10.8); MONOCYTES # (AUTO) 0.3 10^3/uL (0.0-1.0); MONOCYTES % (AUTO) 4.6 %; NEUTROPHILS # (AUTO) 5.8 10^3/uL (1.5-6.6); NEUTROPHILS % (AUTO) 78.7 %; PLT - PLATELET COUNT 300 10^3/uL (130-450); RED BLOOD COUNT 4.73 10^6/uL (4.20-5.40); RED CELL DISTRIBUTION WIDTH 12.7 % (12.0-15.0); WHITE BLOOD COUNT 7.4 x10^3/uL (4.8-10.8)
[2023-08-26 12:50] LABS: ALBUMIN 4.2 g/dL (3.2-5.5); ALBUMIN/GLOBULIN RATIO 1.6 (1.0-2.2); BILIRUBIN,TOTAL 0.3 mg/dL (0.2-1.0); CALCIUM 9.3 mg/dL (8.5-10.3); CREATININE 0.8 mg/dL (0.6-1.3); POTASSIUM 3.8 mmol/L (3.5-4.5); TOTAL PROTEIN 6.8 g/dL (6.4-8.9)
[2023-08-26] MEDS ORDERED: ACETAMINOPHEN 325 MG TABLET PO STA (13:00)
--- NOTE | 2023-08-26 13:07 | XRAY Report ---
PROCEDURE: Chest 1 View X-Ray INDICATIONS: chest pain TECHNIQUE: One view of the chest was acquired. COMPARISON: None FINDINGS: Exam is limited by low lung volume, the patient's mandible obscures the lung apices. Surgical changes and devices: None. Lungs and pleura: Low lung volumes accentuate pulmonary interstitium and heart size. Mediastinum: Mediastinal contours appear normal. Heart size is normal. Bones and chest wall: No suspicious bony lesions. Overlying soft tissues appear unremarkable. IMPRESSION: Limited exam, but no acute cardiopulmonary findings Reviewed by: Fredi Kelly MD on 08/26/2023 12:06 PM ALISA Approved by: Fredi Kelly MD on 08/26/2023 12:06 PM AKENE Station ID: [id number]
[2023-08-26 14:09] LABS: BILIRUBIN,URINE NEGATIVE (NEGATIVE); GLUCOSE, URINE (UA) NEGATIVE (NEGATIVE); KETONES,URINE (UA) NEGATIVE (NEGATIVE); LEUKOCYTE ESTERASE, URINE NEGATIVE (NEGATIVE); NITRITE,URINE NEGATIVE (NEGATIVE); OCCULT BLOOD,URINE NEGATIVE (NEGATIVE); PROTEIN,URINE NEGATIVE (NEGATIVE); UROBILINOGEN,URINE 0.2 (NORMAL) E.U./dL (NORMAL)
[2023-08-26 14:10] LABS: CLARITY,URINE CLEAR (CLEAR)
[2023-08-26 15:42] VITALS: BP 151/89; O2SAT 99
== END 2023-08-26 15:37 | disposition home or self-care (01) ==
LOC: EDUNIT# → ED 12:09
DX: R07.89 Other chest pain (principal); R42 Dizziness and giddiness; Z79.899 Other long term (current) drug therapy
CPT/HCPCS: 36415; 71045; 80053; 81003; 83690; 84484; 85025; 93005; 99283; 99284; A9270; 81001; 87086

== ENCOUNTER 2023-09-07 11:17 | Outpatient (CLI) | payer MEDICARE, MEDICAID ==
--- NOTE | 2023-09-07 16:05 | Mammography Report ---
BILATERAL DIGITAL SCREENING MAMMOGRAM 3D/2D: 09/07/2023 CLINICAL: Routine screening. Comparison is made to exams dated: 04/05/2022 mammogram, 08/27/2020 mammogram, 07/31/2019 mammogram, mammogram, and 04/15/2016 mammogram - [facility]. There are scattered areas of fibroglandular density in both breasts (category b / 25%-50% glandular t issue). No significant masses, calcifications, or other findings are seen in either breast. There has been no significant interval change. IMPRESSION: NEGATIVE There is no mammographic evidence of malignancy. A 1 year screening mammogram is recommended. Based on the Tyrer Cuzick model (a risk assessment model) the patients lifetime risk is 9.3% and her 10 year risk is 2.4%. According to the ACR, ACS, and NCCN guidelines, an annual breast MRI exam blaire g with mammogram is recommended if the patients lifetime risk is 20% or greater. This exam was interpreted at Station ID: [id number]. NOTE: For mammograms, a report in lay terms will be sent to the patient. Approximately 15% of breast malignancies will not be visualized mammographically. In the management of a palpable breast mass, a negative mammogram must not discourage biopsy of a clinically suspicious lesion. Electronically Signed By: Christos shelton/[email or web address]:09/07/2023 12:20:39 letter sent: No_Letter ACR BI-RADS Category 1: Negative 3341F PARENCHYMAL PATTERN: (A) - The breast(s) demonstrate(s) scattered fibroglandular densities. BI-RADS CATEGORY: (1) - 1 Mammogram [id number] 1 year screening LATERALITY: (B)
== END 2023-09-07 11:18 | disposition home or self-care (01) ==
LOC: DI 11:17
PROVIDERS: ATTEND Internal Medicine
DX: Z12.31 Encounter for screening mammogram for malignant neoplasm of breast (principal); R92.323 Mammographic fibroglandular density, bilateral breasts

== ENCOUNTER 2023-09-11 08:15 | Outpatient (CLI) | payer MEDICARE, MEDICAID ==
[2023-09-11 08:35] LABS: BASOPHILS % (AUTO) 0.3 %; EOSINOPHILS % (AUTO) 0.2 %; HCT - HEMATOCRIT 44.5 % (37.0-47.0); HGB - HEMOGLOBIN 14.4 g/dL (12.0-16.0); LYMPHOCYTES # (AUTO) 1.7 10^3/uL (1.5-3.5); LYMPHOCYTES % (AUTO) 26.6 %; MEAN CORPUSCULAR HEMOGLOBIN 30.2 pg (27.0-31.0); MEAN CORPUSCULAR HGB CONC 32.4 g/dL (32.0-36.0); MEAN CORPUSCULAR VOLUME 93.3 fL (81.0-99.0); MEAN PLATELET VOLUME 9.8 fL (7.9-10.8); MONOCYTES # (AUTO) 0.3 10^3/uL (0.0-1.0); MONOCYTES % (AUTO) 5.5 %; NEUTROPHILS # (AUTO) 4.2 10^3/uL (1.5-6.6); NEUTROPHILS % (AUTO) 67.2 %; PLT - PLATELET COUNT 284 10^3/uL (130-450); RED BLOOD COUNT 4.77 10^6/uL (4.20-5.40); RED CELL DISTRIBUTION WIDTH 12.6 % (12.0-15.0); WHITE BLOOD COUNT 6.2 x10^3/uL (4.8-10.8)
[2023-09-11 08:54] LABS: ALBUMIN 4.3 g/dL (3.2-5.5); ALBUMIN/GLOBULIN RATIO 1.7 (1.0-2.2); ALKALINE PHOSPHATASE 67 IU/L (42-121); ALT ALANINE AMINOTRANSFERASE 16 IU/L (10-60); AST ASPARTATE AMINOTRANSFERASE 13 IU/L (10-42); BILIRUBIN,TOTAL 0.3 mg/dL (0.2-1.0); BUN - BLOOD UREA NITROGEN 15 mg/dL (6-20); CALCIUM 9.2 mg/dL (8.5-10.3); CARBON DIOXIDE - CO2 21 mmol/L (21-32); CHLORIDE 108 mmol/L (101-111); CHOL/HDL RATIO 4.6 (<4.4); CHOLESTEROL 258 mg/dL; CREATININE 0.8 mg/dL (0.6-1.3); GFR - MDRD 75 (>89); GLUCOSE 98 mg/dL (74-104); HDL CHOLESTEROL 56 mg/dL; LDL CHOLESTEROL,CALCULATED 154 mg/dL; LDL/HDL RATIO 2.8 (<4.4); SODIUM 138 mmol/L (135-145); TOTAL PROTEIN 6.9 g/dL (6.4-8.9); TRIGLYCERIDES 239 mg/dL (48-352); VLDL CHOLESTEROL 48 mg/dL
[2023-09-11 09:08] LABS: THYROID STIMULATING HORMONE 3.66 uIU/mL (0.34-5.60)
[2023-09-11 10:17] LABS: ESTIMATED AVERAGE GLUCOSE 105 mg/dL (70-100); HEMOGLOBIN A1c% 5.3 % (4.27-6.07)
== END 2023-09-11 08:16 | disposition home or self-care (01) ==
LOC: LAB 08:15
PROVIDERS: ATTEND Internal Medicine
DX: Z00.00 Encounter for general adult medical examination without abnormal findings (principal); R06.09 Other forms of dyspnea; Z87.820 Personal history of traumatic brain injury; E78.5 Hyperlipidemia, unspecified; R73.01 Impaired fasting glucose; L40.9 Psoriasis, unspecified; E03.8 Other specified hypothyroidism
CPT/HCPCS: 36415; 80053; 80061; 83036; 83721; 84439; 84443; 85025

== ENCOUNTER 2023-10-20 12:44 | Outpatient (CLI) | payer MEDICARE, MEDICAID | END 2023-10-20 12:45 | disposition home or self-care (01) | LOC: DI 12:44 | PROVIDERS: ATTEND Internal Medicine | DX: R06.09 Other forms of dyspnea (principal) | CPT/HCPCS: 93306 ==